=== PATIENT | female | born 1950 | race Caucasian/White ===

== ENCOUNTER → 2016-10-26 09:51 | Outpatient (CLI) | payer MEDICARE, OTHER | END | disposition home or self-care (01) | LOC: D.US 09:51 | DX: E03.9 Hypothyroidism, unspecified (principal) ==

== ENCOUNTER 2019-08-11 10:35 | Day surgery (SDC) | payer MEDICARE, OTHER ==
[~2019-08-11] VITALS: Ht 162.6 cm; Wt 64.5 kg
--- NOTE | ~2019-08-11 | OP ---
PATIENT NAME: ED RICHARDSON MEDICAL RECORD: [id number] :48 [facility] DATE: SURGEON: DANNY FORREST MD DATE OF OPERATION: 08/11/2019 PROCEDURE: EGD with biopsy and esophageal balloon dilatation. REFERRING PHYSICIAN: Dr. Brandon Peters. INDICATIONS: Ms. Richardson is a delightful 69-year-old woman with a history of an esophageal ring. She has had symptoms of recurrent dysphagia as well as heartburn on occasion that she treats with Tums. Her last EGD was 10/07/2015 with finding showing esophageal ring that was balloon dilated to a 60-[place], small hiatal hernia, and gastritis. She presents for outpatient EGD. PREMEDICATIONS: Propofol 250 mg. INSTRUMENT: Olympus video gastroscope and esophageal balloon dilator 56 to 60 [place]. PROCEDURE AND FINDINGS: After receiving informed consent, Ms. Richardson's posterior pharynx was anesthetized with Cetacaine spray. She was placed in left lateral decubitus position and sedated as per anesthesia. After achieving adequate level of sedation, gastroscope was introduced per orally and advanced in duodenum without difficulty. The esophageal mucosa was without erythema, ulcers, or masses. At the GE junction (located at 35 cm) was a thick ring, nonobstructive. A large hiatal hernia was noted. Gastric mucosa was notable for mild prepyloric and antral erythema and antral biopsies were obtained. The mucosa of the body of the stomach, cardia, and fundus appeared normal. Pylorus was patent and competent. There was patchy erythema noted in the duodenal bulb. The first and second portions of the duodenum mucosa appeared normal. The gastroscope was then withdrawn into the stomach and esophageal balloon dilator was then introduced through the scope and positioned midway across the distal esophagus, insufflated to a 60-[place] size, held in place on the appropriate PSI for 20 seconds, then deflated with good results. Balloon was then withdrawn. The balloon and an EGD scope were then withdrawn. Ms. Richardson tolerated the procedure well, no immediate complications. ASSESSMENT: 1. Thick Schatzki's ring at the GE junction, status post esophageal balloon dilatation. 2. Large hiatal hernia. 3. Gastritis. 4. Duodenitis. RECOMMENDATIONS: 1. Follow up histopathology. 2. Pepcid [id number] 10 mg 2 p.o. daily as needed. 3. Reflux precautions. 4. Soft diet today. 5. Esophageal balloon dilatation as needed. TRANSINT:[id number] Voice Confirmation ID: [id number] DOCUMENT ID: [id number] OPERATIVE REPORT [id number] ED RICHARDSON TERRI MD CC: BRANDON PETERS [id number] DICTATION DATE: 08/11/19 1241 DIRECTOR OF MATH: 08/11/191920 [facility] 08/11/19 [facility] [address] [place] [address]
[2019-08-11 11:29] LABS: BASOPHILS 0.2 % (0-2); HEMATOCRIT 49.3 % (36.0-48.0); HEMOGLOBIN 16.1 g/dL (12-16); IMMATURE GRANULOCYTES 0.2 % (0-5); MCH 29.1 pg (26.0-34.0); MCHC 32.7 g/dL (31.0-37.0); MEAN PLATELET VOLUME 10.1 fL (7.4-10.4); MONOCYTES 7.4 % (2-11); NEUTROPHILS 48.2 % (40-80); PLATELET COUNT 235 10x3/uL (130-400); RBC 5.54 10x6/uL (4.00-5.40); RDW 13.1 % (11.5-14.5)
[2019-08-11 11:40] LABS: CALC OSMOLALITY 281 mosm/kg (275-300); CALCIUM 9.2 mg/dL (8.5-10.1); CARBON DIOXIDE 28.2 mmol/L (21.0-32.0); CHLORIDE - SERUM 104 mmol/L (98-107); CREATININE - SERUM 0.8 mg/dL (0.6-1.3); GLUCOSE 94 mg/dL (74-106); POTASSIUM - SERUM 4.2 mmol/L (3.5-5.1); SODIUM 141 mmol/L (136-145); UREA NITROGEN 16 mg/dL (7-18); eGFR NON AFRICAN AMERICAN 75 mL/min (90-120)
[2019-08-11] MEDS ORDERED: LEVOTHYROXINE75 MCG PO (11:51)
[2019-08-11 11:56] VITALS: BP 138/70; Ht 162.6 cm; Wt 64.5 kg
--- NOTE | 2019-08-11 13:42 | NUR ---
1330 SOB POST EGD WITH DILITATION. BREATHING TREATMENT DONE, CXR COMPLETED. NO RESIDUAL EFFECTS NOTED. TRANSFERRED BACK TO [facility].
--- NOTE | 2019-08-11 14:16 | NUR ---
1346 IV DC'D. CATHETER TIP INTACT. NO BLEEDING AT SITE. BANDAID APPLIED. REVIEWED DISCHARGE INSTRUCTIONS WITH PT. QUESTIONS ANSWERED. PT VOICES UNDERSTANDING OF INSTRUCTIONS AND IS READY TO GO HOME.
== END 2019-08-11 14:00 | disposition home or self-care (01) ==
LOC: D.OPS 10:35
PROVIDERS: Anesthesiology; ATTEND Internal Medicine Gastroenterology
DX: R13.19 Other dysphagia (principal); R12 Heartburn; K44.9 Diaphragmatic hernia without obstruction or gangrene; K29.70 Gastritis, unspecified, without bleeding; K29.80 Duodenitis without bleeding; K64.4 Residual hemorrhoidal skin tags; Z86.010 Personal history of colon polyps